=== PATIENT | male | born 1970 | race Caucasian/White ===

== ENCOUNTER 2018-12-11 00:13 | Emergency (ER) | payer OTHER ==
[2018-12-11] MEDS: IBUPROFEN 600 MG TAB PO (00:25)
== END 2018-12-11 00:49 | disposition home or self-care (01) ==
LOC: E/R 00:13
DX: M79.662 Pain in left lower leg (principal); M79.661 Pain in right lower leg; Z01.818 Encounter for other preprocedural examination
CPT/HCPCS: 99282